=== PATIENT | female | born 1950 | race Two or more races ===

== ENCOUNTER 2020-10-26 16:45 | Emergency (ER) | payer OTHER ==
[~2020-10-26] VITALS: Ht 149.9 cm; Wt 61.2 kg
[2020-10-26] MEDS ORDERED: FLUTICASONE-SA1 EAC5 (17:04)
[2020-10-26] MEDS ORDERED: PREDNISONE20 MG (17:05)
[2020-10-26] MEDS ORDERED: SINGULAIR 10MG10 MG (17:05)
[2020-10-26] MEDS ORDERED: LEVSIN0.125 MG (17:06)
[2020-10-26] MEDS ORDERED: PROTONIX40 MG (17:06)
== END 2020-10-27 01:38 | disposition home or self-care (01) ==
LOC: ER 16:45
DX: I82.493 Acute embolism and thrombosis of other specified deep vein of lower extremity, bilateral (principal)